=== PATIENT | female | born 1945 | race Caucasian/White ===

== ENCOUNTER 2021-12-26 20:25 | Emergency (ER) | payer MEDICARE, BC, SELFPAY ==
[2021-12-26 20:47] VITALS: BP 140/104; PULSE 85; RESP 18; TEMP 36.6; O2SAT 95; BMI 22.9
--- NOTE | 2021-12-26 21:13 | CRLHL7_ITS ---
For Patients: As a result of the Century Cures Act, medical imaging exams and procedure reports are released immediately into your electronic medical record. You may view this report before your referring provider. If you have questions, please contact your health care provider. INDICATION: Constipation. TECHNIQUE: Three views. FINDINGS: There is no evidence of subdiaphragmatic free air on upright view. Mild gaseous distention of small bowel in the mid abdomen. Early or developing obstruction is a possibility. Numerous surgical clips are present in the right abdomen. Calcifications in the lower pelvis have the appearance of phleboliths. Remote appearing deformity right ischium, possibly remote trauma. IMPRESSION: Mild gaseous distention of stomach and small bowel, early or developing obstruction not excluded. No free air. Dictated by Sabino Garland MD @ 12/26/2021 9:34:45 PM (Electronically Signed)
--- NOTE | 2021-12-26 21:38 | ED.NURSE ---
Report given to DANNI Ga.
--- NOTE | 2021-12-26 22:33 | ED.NURSE ---
MD ordered Fleets enema then instructed RN to hold administration. Patient began to feel better and was moving stool through colon so no enema was given.
--- NOTE | 2021-12-27 14:50 | ED.ABDPAIN ---
HPI - Abdominal Pain General Chief Complaint: Abdominal Pain Stated Complaint: Stoma Blockage Time Seen by Provider: 12/26/21 21:09 History of Present Illness HPI narrative: 76-year-old woman presenting with spouse with concern of abdominal pain and potential blockage of her abdominal stoma. She did have nuts today and notes that this has happened in the past when she ate nuts. Has no longer been producing stool into her bag. Started around 8 hours prior to presentation here. No fever. She notes that 1 of the times when she had tried problems here the intra-abdominal mesh had dislodged causing a problem. She has been nauseated. Is able to maintain hydration. She says notes that the stone was much more protuberant than usual. Related Data Home Medications Medication Instructions Recorded Confirmed No Known Home Medications 12/26/21 12/26/21 Allergies Allergy/AdvReac Type Severity Reaction Status Date / Time No Known Drug Allergies Allergy Verified 11/15/21 16:43 Review of Systems Status of ROS Reports: 6 or more systems reviewed and unremarkable except as noted in History and below PFSH PFSH Social History Smoking Status: Former smoker How often do you have a drink containing alcohol: 4 or more times a week AUDIT-C Alcohol total score: 4 Non-prescribed substance use: denies use Exam Narrative: Exam Narrative: Is pleasant. Clearly uncomfortable. Hands at her abdomen. Skin is warm and dry. Moving all extremities without difficulty and is well perfused. Cranial nerves 2-12 intact. Cardiovascular with regular rate and rhythm no murmur rub or gallop identified. Lungs are clear. Abdomen is protuberant soft. Do not actually appreciate much tympany. Stoma at the right mid abdomen with some greenish staining in the bag. I do apply pressure to the abdomen expelling a very small amount of green stool. This is uncomfortable but tolerable. Bowel sounds are present but faint. Const: Vital Signs, click to edit/add: Vital Signs - 24 hr 12/26/21 20:47 Temperature 97.9 F Pulse Rate [Pulse Oximeter] 85 Respiratory Rate 18 Blood Pressure [Le ft Upper Arm] 140/104 H Pulse Oximetry 95 Oxygen Delivery Me thod Room Air Documenting provider has reviewed patient's vital signs: yes Course Vital Signs Vital signs: Initial Vital Signs Temperature 97.9 F 12/26/21 20:47 Temperature Source Temporal Artery Scan 12/26/21 20:47 Pulse Rate 85 12/26/21 20:47 Pulse Rhythm 12/26/21 20:47 Respiratory Rate 18 12/26/21 20:47 Blood Pressure 140/104 H 12/26/21 20:47 Blood Pressure Mean 116 12/26/21 20:47 Blood Pressure Position Supine 12/26/21 20:47 Pulse Oximetry 95 12/26/21 20:47 Oxygen Delivery Method 12/26/21 20:47 Vital Signs Temperature 97.9 F 12/26/21 20:47 Pulse Rate 85 12/26/21 20:47 Respiratory Rate 18 12/26/21 20:47 Blood Pressure 140/104 H 12/26/21 20:47 Pulse Oximetry 95 12/26/21 20:47 Oxygen Delivery Method 12/26/21 20:47 Temperature 97.9 F 12/26/21 20:47 Pulse Rate 85 12/26/21 20:47 Respiratory Rate 18 12/26/21 20:47 Blood Pressure 140/104 H 12/26/21 20:47 Pulse Oximetry 95 12/26/21 20:47 Oxygen Delivery Method 12/26/21 20:47 MDM - Abdominal Pain MDM Narrative Medical decision making narrative: Given what she is describing certainly do have concerns regarding bowel obstruction. She does not feel she wants anything for pain at this time but does accept of Zofran. Abdominal x-ray is ordered which does show some air-fluid levels and a little distention in the small bowel I think, by my read. Radiology over-read as below--- IMPRESSION: Mild gaseous distention of stomach and small bowel, early or developing obstruction not excluded. No free air. Return anticipating further workup but reports that is feeling much better. They apparently did manage to fill the bag with stool and have a ready changed it. She does feel good deal improved. Says she is having lots of bowel sounds again. Discharge Plan Discharge Clinical Impression: Partial bowel obstruction, Abdominal pain Patient Disposition: Home w/ Parent or Adult Condition: Improved Additional Instructions: Just focus on hydration for now. Over the next 24-30 hours clear liquids, diluted juices, soup broths. Return for marked increase in persistent pain, intractable vomiting, associated fever. Zofran from [facility]. Prescriptions: No Action No Known Home Medications Follow Up/Referrals: Georgette Amaya MD [Primary Care Provider] - Stand Alone Forms: [employer] Info Instructions
== END 2021-12-26 22:37 | disposition home or self-care (01) ==
LOC: ED 22:00
PROVIDERS: Emergency Provider Family Medicine; PCP Internal Medicine
DX: K56.690 Other partial intestinal obstruction (principal)
CPT/HCPCS: 74019; 99283

== ENCOUNTER 2022-01-08 14:45 | Outpatient (CLI) | payer MEDICARE, BC, SELFPAY ==
--- NOTE | 2022-01-08 15:00 | CRLHL7_ITS ---
For Patients: As a result of the Cures Act, medical imaging exams and procedure reports are released immediately into your electronic medical record. You may view this report before your referring provider. If you have questions, please contact your health care provider. BILATERAL SCREENING MAMMOGRAM WITH COMPUTER-AIDED DETECTION TECHNIQUE: CC and MLO views were obtained. These mammographic images have been obtained using full-field digital technique. These mammographic images were interpreted with the benefit of computer-aided detection. COMPARISON FILM: 12/14/20, 12/09/19, 11/23/18. FINDINGS: There are scattered areas of fibroglandular density. LEFT breast biopsy clip seen previously. IMPRESSION: There is no radiographic evidence for malignancy. ASSESSMENT: BI-RADS Category 1: Negative RECOMMENDATION: Routine screening mammogram in 1 year. A lay language report of this examination will be provided to the patient. Mario Gray M.D. Diagnostic/Nuclear Medicine Radiologist [email or web address] NAGA:[email or web address] Transcribed: 10:49 a.m. PT/Dictated by: Mario Gray MD @ 01/09/2022 8:36:00 AM (Electronically Signed)
== END 2022-01-08 14:46 | disposition home or self-care (01) ==
LOC: MAMMO 14:46
PROVIDERS: PCP Internal Medicine; Visit Provider Internal Medicine
DX: Z12.31 Encounter for screening mammogram for malignant neoplasm of breast (principal)
CPT/HCPCS: 77063; 77067

== ENCOUNTER 2022-11-26 16:58 | Outpatient (CLI) | payer MEDICARE, BC, SELFPAY | END 2022-11-26 16:59 | disposition home or self-care (01) | PROVIDERS: PCP Internal Medicine; Visit Provider Internal Medicine | DX: Z00.00 Encounter for general adult medical examination without abnormal findings (principal); M85.80 Other specified disorders of bone density and structure, unspecified site | CPT/HCPCS: 82306 ==

== ENCOUNTER 2023-06-23 08:01 | Outpatient (CLI) | payer MEDICARE, BC, SELFPAY ==
--- NOTE | 2023-06-23 08:15 | MM_ITS ---
Patient: KARIME GONZÁLES Facility:?[facility] Patient ID:?[id number] Site Patient ID:?[id number] Site :?[id number] Study:?XRay-Breast Bilateral 3D W/CAD-06/23/2023 9:24:21 AM Ordering Physician:?Georgette Amaya Final Report: BILATERAL DIGITAL SCREENING MAMMOGRAM WITH TOMOSYNTHESIS AND COMPUTER-AIDED DETECTION CLINICAL HISTORY: Routine screening exam. COMPARISON: 01/08/2022, 12/14/2020, 12/09/2019. TECHNIQUE: Digital mammogram in CC and MLO projections including computer-aided detection (CAD). Tomosynthesis utilized. BREAST COMPOSITION: There are areas of scattered fibroglandular density. FINDINGS: RIGHT Breast: No suspicious findings. LEFT Breast: Nodular density within the lateral breast tissue 6 cm from the nipple, new from prior studies. IMPRESSION: LEFT breast asymmetry/mass. RECOMMENDATIONS: Additional mammographic views of the LEFT breast including 3D spot compression CC/MLO. LEFT breast ultrasound may also be required. BI-RADS Category 0: Incomplete: Need Additional Imaging Evaluation and/or Prior Mammograms for Comparison [facility] will contact the patient for follow-up. A lay language report of this examination will be provided to the patient. Dictated by Sanjay Barkley MD @ 06/24/2023 12:00:48 PM bhavya/Dictated by: Sanjay Barkley MD @ 06/24/2023 12:01:00 PM Signed by:?Sanjay Barkley MD @06/24/2023 1:27:38 PM (Electronic Signature)
== END 2023-06-23 08:02 | disposition home or self-care (01) ==
LOC: MAMMO 08:02
PROVIDERS: PCP Internal Medicine; Visit Provider Internal Medicine
DX: Z12.31 Encounter for screening mammogram for malignant neoplasm of breast (principal); N63.20 Unspecified lump in the left breast, unspecified quadrant
CPT/HCPCS: 77063; 77067

== ENCOUNTER 2023-07-17 09:20 | Outpatient (CLI) | payer MEDICARE, BC, SELFPAY ==
--- NOTE | 2023-07-17 09:45 | CRLHL7_ITS ---
For Patients: As a result of the Cures Act, medical imaging exams and procedure reports are released immediately into your electronic medical record. You may view this report before your referring provider. If you have questions, please contact your health care provider. DIGITAL DIAGNOSTIC LEFT MAMMOGRAM USING TOMOSYNTHESIS AND COMPUTER-AIDED DETECTION LEFT BREAST ULTRASOUND CLINICAL HISTORY: LEFT breast mass/asymmetry. COMPARISON: 06/23/2023, 01/08/2022. TECHNIQUE: Digital LEFT mammogram in two projections with computer-aided detection. Tomosynthesis was used in this interpretation. Real-time ultrasound imaging of LEFT breast with imaging documentation. BREAST COMPOSITION: There are areas of scattered fibroglandular density. FINDINGS: 3D spot compression CC/MLO LEFT breast mammogram images submitted. Persistent nodular density within the lower outer quadrant LEFT breast. No architectural distortion. Biopsy clip again noted within the LEFT breast. No suspicious calcifications. Targeted LEFT breast ultrasound performed. At 3 o`clock 6 cm from the nipple there is a circumscribed anechoic simple cyst measuring 12 x 9 x 14 millimeters. IMPRESSION: Benign simple cyst measuring 12 x 9 x 14 millimeters 3 o`clock 6 cm from the nipple LEFT breast. No evidence of malignancy. RECOMMENDATIONS: Annual bilateral screening mammography. Results and recommendations discussed with the patient. BI-RADS Category 2: Benign A lay language report of this examination will be provided to the patient. Dictated by Sanjay Barkley MD @ 07/17/2023 11:25:33 AM /Dictated by: Sanjay Barkley MD @ 07/17/2023 11:25:00 AM (Electronically Signed)
--- NOTE | 2023-07-17 10:15 | CRLHL7_ITS ---
For Patients: As a result of the Cures Act, medical imaging exams and procedure reports are released immediately into your electronic medical record. You may view this report before your referring provider. If you have questions, please contact your health care provider. PLEASE SEE DIGITAL DIAGNOSTIC LEFT MAMMOGRAM PERFORMED SAME DAY CRL:bhavya latif/Dictated by: Sanjay Barkley MD @ 07/17/2023 11:25:00 AM (Electronically Signed)
== END 2023-07-17 09:21 | disposition home or self-care (01) ==
LOC: MAMMO 09:21
PROVIDERS: PCP Internal Medicine; Visit Provider Internal Medicine
DX: N63.20 Unspecified lump in the left breast, unspecified quadrant (principal); N60.02 Solitary cyst of left breast; R92.8 Other abnormal and inconclusive findings on diagnostic imaging of breast
CPT/HCPCS: 76642; 77065; G0279

== ENCOUNTER 2024-01-01 10:58 | Day surgery (SDC) | payer MEDICARE, BC, SELFPAY ==
[2024-01-01] VITALS (10 sets, daily range): BP systolic 113–157; BP diastolic 66–96; PULSE 76–88; RESP 12–16; TEMP 36.4; O2SAT 94–96; BMI 22.8
[2024-01-01] MEDS: LIDOCAINE 1%-EPI 1:100,000 20 ML INFILTRATI (13:25)
[2024-01-01] MEDS: BUPIVACAINE 0.5 %/EPI 1:200K 30 ML INJECTION (13:25)
--- NOTE | 2024-01-01 14:08 | PM.ORPRC ---
Procedure Note Date of procedure: 01/01/24 Procedure: Preop diagnosis: Left upper extremity carpal tunnel syndrome Postop diagnosis: Left upper extremity carpal tunnel syndrome Procedure: Left upper extremity carpal tunnel release Anesthesia: Local Surgeon: Hubert Manzo MD assistant shift supervisor: HARJEET Chance EBL: 2 mL Complications: None Specimens: None Drains: None Indications: The patient has a history of left upper extremity carpal tunnel syndrome symptoms. Despite appropriate nonoperative management consisting of nighttime bracing and occupational therapy they continue to have symptoms. Operative intervention was recommended. The risks, benefits alternatives and expected outcomes were discussed in detail. These included but were not limited to: Infection, bleeding, injury to blood vessel or nerve, venous thromboembolism. All questions were answered to their satisfaction. The patient was placed supine on the operating room table. Local anesthesia was established with 0.5% Marcaine with epinephrine and 2% lidocaine with epinephrine. The hand was prepped and draped in usual sterile fashion. A longitudinal incision was made centered over the radial border of the ring finger at the base of the palm. Subcutaneous dissection was sharply taken through the palmar fascia and the palmaris brevis to the transverse carpal ligament. The ligament was divided in line with the incision. Proximal and distal dissection was carried with tenotomy and Metzenbaum scissors for a wide decompression of the carpal tunnel. The wound was closed with a 3-0 nylon. A bulky dry dressing was applied, sponge and needle counts were correct x 2. The patient tolerated the procedure well, there were no apparent complications. They were sent to same day surgery in satisfactory condition. Plan: Use of the hand as tolerates. Discontinue the intraoperative dressing on postoperative day 3 and may get the wound wet as tolerates. Follow up in the office in 2 weeks for a wound check and suture removal.
== END 2024-01-01 14:19 | disposition home or self-care (01) ==
PROVIDERS: PCP Internal Medicine; Visit Provider Orthopaedic Surgery
PROC: (CPT 64721; principal; 2024-01-01 12:15)
DX: G56.02 Carpal tunnel syndrome, left upper limb (principal)
CPT/HCPCS: 64721; J3490

== ENCOUNTER 2024-01-21 14:47 | Outpatient (CLI) | payer MEDICARE, BC, SELFPAY ==
--- NOTE | 2024-01-21 15:00 | CRLHL7_ITS ---
For Patients: As a result of the Century Cures Act, medical imaging exams and procedure reports are released immediately into your electronic medical record. You may view this report before your referring provider. If you have questions, please contact your health care provider. DXA BONE MINERAL DENSITY STUDY Reason for exam: Other specified disorders of bone density. Current height (in): 69. Weight (lb): 155. Menopause age: 45. Ethnicity: White. 1. Have you had a previous hip or vertebral fracture? No. 2. Have you had any fractures during your adult life which did not result from significant trauma (e.g., auto accident)? Yes. 3. Did either of your parents have a hip fracture? No. 4. Do you smoke? No. 5. Have you ever taken Glucocorticoids? No. 6. Do you have rheumatoid arthritis? No. 7. Do you have secondary osteoporosis? No. 8. Do you drink 3 or more alcoholic drinks per day? No. 9. Are you being treated for osteoporosis? No. 10. Have you ever taken any of the following medications: Actonel, Evista, Fosamax, Miacalcin, Reclast, Boniva, Forteo, HRT (i.e., estrogen/hormone therapy), Protelos, Prolia, Vitamin D, Calcium, other ??? please specify. ANSWER: Yes, vitamin D and calcium. 11. Do you have any of the following medical conditions: Anorexia or bulimia, asthma or emphysema, end stage renal disease, hyperparathyroidism, any seizure disorders, cancer, inflammatory bowel diseases, hysterectomy, other ??? please specify. ANSWER: Yes, inflammatory bowel diseases, hysterectomy, ulcerative colitis. 12. What was your maximum height (inches)? 70. 13. Do you perform weight bearing exercise regularly? Yes. 14. Do you regularly consume dairy products? Yes. 15. Do you drink caffeinated beverages? No. 16. At what age did your period start? 16. 17. Are you premenopausal? No. 18. How many full-term pregnancies have you had? 3. 19. Have you ever missed your period for more than 6 months in a row (not including or menopause)? No. TECHNIQUE: Bone mineral density study was performed using the [employer]. FINDINGS: The results of the study expressed as bone mineral density (BMD) are as follows: Lumbar spine L1 to L3: BMD: 0.953 g/cm2. T-score: -0.6. Z-score: 1.8 Neck Left: BMD: 0.702 g/cm2. T-score: -1.3. Z-score: 0.8 Right: BMD: 0.594 g/cm2. T-score: -2.3. Z-score: -0.2 Total Left: BMD: 0.797 g/cm2. T-score: -1.2. Z-score: 0.7 Right: BMD: 0.779 g/cm2. T-score: -1.3. Z-score: 0.5 IMPRESSION: Osteopenia. *Comparison exams done prior to 07/2019 were performed on different unit, ADP. COMPARISON: Compared with scan of 12/14/2020, the bone mineral density has no change at 0.0 percent at the spine and increased by 1.8 percent at the hip. Compared with scan of 09/30/2016, the bone mineral density has increased by 2.9 percent at the spine and increased by 3.7 percent at the hip. FRAX 10-year Fracture Risk Major Osteoporotic Fracture: 21% Hip Fracture: 6.1% Reported Risk Factors: [place] () Neck BMD=0.594, BMI=22.9, previous fracture. JAMEE GUNN M.D. Transcribed: 10:50 a.m. [email or web address] jj/Dictated by: Jamee Gunn MD @ 01/22/2024 8:30:00 AM (Electronically Signed)
== END 2024-01-21 14:48 | disposition home or self-care (01) ==
LOC: RAD 14:47
PROVIDERS: PCP Internal Medicine; Visit Provider Internal Medicine
DX: M85.88 Other specified disorders of bone density and structure, other site (principal); M85.89 Other specified disorders of bone density and structure, multiple sites
CPT/HCPCS: 77080

== ENCOUNTER 2024-06-17 06:12 | Day surgery (SDC) | payer MEDICARE, BC, SELFPAY ==
[2024-06-17] VITALS (12 sets, daily range): BP systolic 113–141; BP diastolic 69–95; PULSE 75–88; RESP 16–20; TEMP 36.3–36.5; O2SAT 94–98; BMI 22.0
[2024-06-17] MEDS: ETHYL CHLORIDE 1 APPLICATION 1 APPLIC TOPICAL (06:55)
[2024-06-17] MEDS: LIDOCAINE 1%-EPI 1:100,000 20 ML INFILTRATI (06:55)
[2024-06-17] MEDS: BUPIVACAINE 0.5 %/EPI 1:200K INJECTION (06:55)
--- NOTE | 2024-06-17 07:42 | PM.ORPRC ---
Procedure Note Date of procedure: 06/17/24 Procedure: Preop diagnosis: Right upper extremity carpal tunnel syndrome Postop diagnosis: Right upper extremity carpal tunnel syndrome Procedure: Right upper extremity carpal tunnel release Anesthesia: Local Surgeon: Hubert Manzo MD housing assistant property manager: HARJEET Chance, Desi Kenny, MS4 EBL: 2 mL Complications: None Specimens: None Drains: None Indications: The patient has a history of right upper extremity carpal tunnel syndrome symptoms. Despite appropriate nonoperative management consisting of nighttime bracing and occupational therapy they continue to have symptoms. Operative intervention was recommended. The risks, benefits alternatives and expected outcomes were discussed in detail. These included but were not limited to: Infection, bleeding, injury to blood vessel or nerve, venous thromboembolism. All questions were answered to their satisfaction. The patient was placed supine on the operating room table. Local anesthesia was established with 0.5% Marcaine with epinephrine and 2% lidocaine with epinephrine. The hand was prepped and draped in usual sterile fashion. A longitudinal incision was made centered over the radial border of the ring finger at the base of the palm. Subcutaneous dissection was sharply taken through the palmar fascia and the palmaris brevis to the transverse carpal ligament. The ligament was divided in line with the incision. Proximal and distal dissection was carried with tenotomy and Metzenbaum scissors for a wide decompression of the carpal tunnel. The wound was closed with a 3-0 nylon. A bulky dry dressing was applied, sponge and needle counts were correct x 2. The patient tolerated the procedure well, there were no apparent complications. They were sent to same day surgery in satisfactory condition. Plan: Use of the hand as tolerates. Discontinue the intraoperative dressing on postoperative day 3 and may get the wound wet as tolerates. Follow up in the office in 2 weeks for a wound check and suture removal.
== END 2024-06-17 08:16 | disposition home or self-care (01) ==
LOC: OR 06:13
PROVIDERS: PCP Internal Medicine; Visit Provider Orthopaedic Surgery
PROC: (CPT 64721; principal; 2024-06-17 07:15)
DX: G56.01 Carpal tunnel syndrome, right upper limb (principal)
CPT/HCPCS: 64721; J3490

== ENCOUNTER 2024-07-07 11:16 | Outpatient (CLI) | payer MEDICARE, BC, SELFPAY ==
--- NOTE | 2024-07-07 11:30 | CRLHL7_ITS ---
For Patients: As a result of the Century Cures Act, medical imaging exams and procedure reports are released immediately into your electronic medical record. You may view this report before your referring provider. If you have questions, please contact your health care provider. BILATERAL DIGITAL SCREENING MAMMOGRAM WITH COMPUTER-AIDED DETECTION AND TOMOSYNTHESIS CLINICAL HISTORY: : Routine screening exam. COMPARISON: 07/17/2023, 06/23/2023, 01/08/2022 TECHNIQUE: Digital mammogram in CC and MLO projections including computer-aided detection (CAD). Tomosynthesis was used in this interpretation. BREAST COMPOSITION: There are scattered areas of fibroglandular density. FINDINGS: RIGHT Breast: No suspicious findings LEFT Breast: Increased size of previously evaluated cyst within the lateral left breast now measuring 2.9 cm, previously measuring 1.4 cm. IMPRESSION: LEFT breast asymmetry/mass. RECOMMENDATIONS: Left breast ultrasound recommended. The [facility] will contact the patient. A lay language report of this examination will be provided to the patient. BI-RADS Category 0: Incomplete: Need Additional Imaging Evaluation Dictated by Sanjay Barkley MD @ 07/07/2024 11:54:21 AM Dictated by: Sanjay Barkley MD @ 07/07/2024 11:54:26 (Electronically Signed)
== END 2024-07-07 11:17 | disposition home or self-care (01) ==
LOC: MAMMO 11:17
PROVIDERS: PCP Internal Medicine; Visit Provider Internal Medicine
DX: Z12.31 Encounter for screening mammogram for malignant neoplasm of breast (principal); N63.20 Unspecified lump in the left breast, unspecified quadrant
CPT/HCPCS: 77063; 77067

== ENCOUNTER 2024-07-26 07:56 | Outpatient (CLI) | payer MEDICARE, BC, SELFPAY ==
--- NOTE | 2024-07-26 08:15 | CRLHL7_ITS ---
For Patients: As a result of the Century Cures Act, medical imaging exams and procedure reports are released immediately into your electronic medical record. You may view this report before your referring provider. If you have questions, please contact your health care provider. ULTRASOUND-GUIDED CYST ASPIRATION LEFT BREAST CLINICAL HISTORY: Large left breast cyst COMPARISON STUDIES: 07/07/2024 TECHNIQUE: Real-time ultrasound with image documentation was used for targeting the breast lesion. Ultrasound-guided aspiration performed with an 18 gauge needle. CONSENT and TIME OUT: The procedure, risks, and alternatives were explained to the patient and a consent was signed. Jerome Protocol was followed including pre-procedure verification that relevant information/documentation was available, reviewed and properly matched to the patient; consent accurate and complete; and equipment and supplies available. Time Out was conducted just prior to starting procedure to verify the four required elements: patient identity, correct side/site marked (if applicable), procedure, relevant images/results properly labeled and displayed (if applicable). PROCEDURE: The patient was positioned supine on the ultrasound table. The breast was prepped with ChloraPrep. 3 cc of 1% lidocaine was injected for local anesthesia. 13 cc of serosanguineous fluid aspirated and discarded. LATERALITY: Left breast LESION: Benign cyst measures 3.4 x 2.4 x 2.7 cm at 3 o`clock 6 cm from the nipple. IMPRESSION: Ultrasound-guided left breast cyst aspiration. No residual cyst is present. ACR not applicable Dictated by Sanjay Barkley MD @ 07/26/2024 10:31:43 AM (Electronically Signed)
--- NOTE | 2024-07-26 08:15 | CRLHL7_ITS ---
For Patients: As a result of the Century Cures Act, medical imaging exams and procedure reports are released immediately into your electronic medical record. You may view this report before your referring provider. If you have questions, please contact your health care provider. CLINICAL HISTORY: Left breast mass. COMPARISON: 07/07/2024 TECHNIQUE: Real-time ultrasound imaging of left breast with imaging documentation. FINDINGS: Targeted ultrasound left breast 3 o`clock 6 cm from the nipple performed in the area of concern. In this location, there is a simple circumscribed anechoic cyst which measures 3.4 x 2.4 x 2.7 cm. No internal vascularity. Mild layering debris noted. Increased through transmission noted. IMPRESSION: Benign cyst left breast 3 o`clock 6 cm from the nipple measuring 3.4 cm. RECOMMENDATIONS: Ultrasound-guided aspiration will be performed subsequently. A lay language report of this examination will be provided to the patient. BI-RADS Category 2: Benign Dictated by Sanjay Barkley MD @ 07/26/2024 9:18:49 AM JANIE/Dictated by: Sanjay Barkley MD @ 07/26/2024 9:18:00 AM (Electronically Signed)
== END 2024-07-26 07:57 | disposition home or self-care (01) ==
LOC: US 07:56
PROVIDERS: PCP Internal Medicine; Visit Provider Internal Medicine
DX: N63.20 Unspecified lump in the left breast, unspecified quadrant (principal); N60.02 Solitary cyst of left breast; R92.8 Other abnormal and inconclusive findings on diagnostic imaging of breast
CPT/HCPCS: 19000; 76642; 76942

== ENCOUNTER 2024-10-12 07:33 | Day surgery (SDC) | payer MEDICARE, BC, SELFPAY ==
[2024-10-12] VITALS (7 sets, daily range): BP systolic 95–140; BP diastolic 66–107; PULSE 59–79; RESP 16; TEMP 35.9–36.9; O2SAT 94–98; BMI 27.2
[2024-10-12] MEDS: CELECOXIB 200 MG CAPSULE PO (07:36)
[2024-10-12] MEDS: ACETAMINOPHEN 500 MG TABLET 1000 MG PO (07:36)
[2024-10-12] MEDS: LACTATED RINGERS 1000 ML 1,000 ML 100 ML IV (07:40)
[2024-10-12] MEDS: SODIUM CHLORIDE 0.9 % (FLUSH) 10 ML SYRINGE IVF (07:57)
--- NOTE | 2024-10-12 08:28 | SUR.PREOP ---
TIME?OUT:?827 PT/Florence Loza RN/Dr. Sal MDA?VERIFICATION?OF?SURGICAL?SITE right thumb,?PROCEDURE,?AND?CONSENT OBTAINED?PRIOR?TO?INVASIVE?PROCEDURE.
[2024-10-12] MEDS: MIDAZOLAM HCL 1 MG/ML inj IVP (08:29)
--- NOTE | 2024-10-12 08:49 | P.NB_ITS ---
Nerve Block Nerve Block Time Seen by Provider: 08:30 Date Seen: 10/12/24 Type of block requested by surgeon for post-operative analgesia: axillary Side: right Time out performed: Yes Verification of patient name: Yes Verification of date of : Yes Site marking: site marked Name of person performing procedure: Sal Continuous monitoring Was continuous monitoring of O2 sat, B/P, traffic monitor specialist, recorded every 15 minutes?: Yes Procedure Checklist: sterile prep, needles and gloves Ultrasound guided. Images saved: Yes Medications given in 5ml increments after negative aspiration: Ropivicaine %: 0.5 mL: 30 Needle gauge: 22 Patient tolerated procedure well: Yes Additional comments: Needle noted adjacent to nerve Block Charges Block Charge (with Pro Fee): Brachial Plexus Use of Ultrasound Machine for Block: Yes- US Guidance/pain block
--- NOTE | 2024-10-12 08:52 | P.ANES_ITS ---
Anesthesia Charges Start Date/Time Anesthesia Start Date: 10/12/24 Anesthesia Start Time: 08:45 Stop Date/Time Anesthesia Stop Date: 10/12/24 Anesthesia Stop Time: 11:11 Summary Extremes of Age - Over 70 or under 1: MDA Coding CPT Codes CPT Codes: ANESTH LOWER ARM SURGERY - 10318 ([id number]) QK - MEDIA DEVELOPER 2-4 CNCRNT ANES PROC, QX - BIOLOGY INTERNSHIP SVC W/ MD MED DIRECTION, P2 - PATIENT W/MILD SYST DISEASE Additional Codes: Summary - Extremes of Age - Over 70 or under 1: MDA ([id number])
--- NOTE | 2024-10-12 11:00 | P.ORPRC_ITS ---
Procedure Note Date of procedure: 10/12/24 Procedure: PREOPERATIVE DIAGNOSIS: Right thumb CMC joint osteoarthritis, STT joint osteoarthritis POSTOPERATIVE DIAGNOSIS: Right thumb CMC joint osteoarthritis, STT joint osteoarthritis NAME OF OPERATION: Right thumb CMC arthroplasty (LRTI), partial resection of the trapezoid, EPB transfer SURGEON: Hubert Manzo MD RIVETER PORTABLE MACHINE: Sallie Larose PA-C ANESTHESIA: Axillary block plus monitored anesthesia care ESTIMATED BLOOD LOSS: 0 mL COMPLICATIONS: None SPECIMENS: None DRAINS: None PREOPERATIVE ANTIBIOTICS: Ancef 2 grams INDICATIONS: The patient is a 79-year-old with a history of right thumb CMC joint, STT joint osteoarthritis. Despite appropriate nonoperative management, including activity modification, antiinflammatories, [id number] pain medication, bracing, occupational therapy, and injections they continue to have pain and disability. Operative intervention was offered. The risks, benefits and expected outcomes were discussed in detail. These included but were not limited to: Infection, bleeding, injury to blood vessel or nerve, venous thromboembolism. All questions were answered to their satisfaction. Use of an web marketing assistant was necessary for patient positioning, soft tissue retraction, wound closure and dressing and splint application. Provider Operated C-arm: C-arm fluoroscopy operated by Hubert Manzo MD for resection of the base of the trapezoid. Fourteen C-arm spot images were obtained. Fluoroscopy time was 10 seconds. PROCEDURE: An axillary block was placed by anesthesia. The patient was placed supine on the operating room table. IV sedation was administered. The right upper extremity was prepped and draped in the usual sterile fashion. The limb was exsanguinated with the Vic bandage. The pneumatic tourniquet was inflated to 200 mmHg. A longitudinal incision was made just dorsal to the 1st dorsal compartment at the base of the thumb. Subcutaneous dissection was taken with tenotomy scissors. The base of the thumb metacarpal was exposed. The CMC joint capsule was incised longitudinally. Subperiosteal dissection of the trapezium was carried both dorsally and volarly. Likewise, the base of the thumb metacarpal was subperiosteally exposed. The trapezium was dissected free with the 15 blade and the [place] elevator. It was removed intact. In doing so, what was left of the trapezoid was removed as well. It was diminutive in size, from the STT joint arthritis. We inspected the stability of the index finger metacarpal. There was no propensity for shortening or instability of the base of the index metacarpal. Despite this, we elected to clean up trapezoid and use it as a biologic spacer. Therefore, it was placed in its anatomic location. Attention was then turned to the FCR graft harvest. A transverse incision was made at the musculotendinous junction of the FCR in the volar forearm. Subcutaneous dissection was taken with tenotomy scissors to the tendon. The tendon was freed up from the muscle fibers and was divided transversely. We then pulled the tendon graft into the distal incision at the base of the thumb. We placed a 2-0 FiberWire suture in the deep capsule. A 2.8 mm socket was drilled on the radial side of the base of the index finger metacarpal. A loop of labral tape was placed in the socket and secured with a 3 mm x 8 mm BioComposite anchor. A guide pin was drilled through the dorsum of the base of the thumb metacarpal exiting at the volar peak of the base of thumb metacarpal. A 5 mm tunnel was drilled. The tendon passer was placed through the tunnel. We pulled the tendon graft and both limbs of the labral tape into the tunnel. We maximally tensioned the graft and then placed a 4.75 x 15 mm Arthrex BioComposite tenodesis screw just distal to the graft. The graft was then pulled proximally and was secured to the dorsal bone of the base of the metacarpal with 2-0 FiberWire suture x2. We then used our previously placed 2-0 FiberWire suture in the deep capsule and folded the graft back and forth over these sutures. The graft was placed in the depth of the wound and this FiberWire suture was tied over the top to secure it in position. Given the amount of hyperextension through the thumb MP joint we elected to transfer the extensor pollicis brevis tendon. It was therefore freed up and was divided just proximal to the MP joint. It was then secured to the periosteum of the thumb metacarpal, proximal to the MP joint with a 3-0 FiberWire, completing the transfer. The wound was irrigated with normal saline. The capsule was closed with a 3-0 Vicryl in an interrupted [id number] fashion. Wounds were closed with 3-0 Vicryl and a 4-0 Monocryl. Glue was used to seal the skin. A dry dressing and short-arm thumb spica splint were applied, the tourniquet was released. Sponge and needle counts were correct x 2. The patient tolerated the procedure well. There were no apparent complications. They were carefully transferred to the hospital bed and taken to the postanesthesia care unit in satisfactory condition. PLAN: The patient will be discharged to home. They will work on ice and elevation of the hand. They will follow up in the office next week for wound check and three views of the thumb, out of the splint prior to being seen.
--- NOTE | 2024-10-12 11:10 | P.ANES_ITS ---
Anesthesia Charges Start Date/Time Anesthesia Start Date: 10/12/24 Anesthesia Start Time: 08:45 Stop Date/Time Anesthesia Stop Date: 10/12/24 Anesthesia Stop Time: 11:11 Summary Extremes of Age - Over 70 or under 1: QC TECH Coding CPT Codes CPT Codes: ANESTH LOWER ARM SURGERY - 92112 ([id number]) P2 - PATIENT W/MILD SYST DISEASE, QK - HYDROTREATER OPERATOR 2-4 CNCRNT ANES PROC, QX - QC TECH SVC W/ MD MED DIRECTION Additional Codes: Summary - Extremes of Age - Over 70 or under 1: QC TECH ([id number])
--- NOTE | 2024-10-12 11:10 | W.ANESCHARGE ---
Anesthesia Charges Start Date/Time Anesthesia Start Date: 10/12/24 Anesthesia Start Time: 08:45 Stop Date/Time Anesthesia Stop Date: 10/12/24 Anesthesia Stop Time: 11:11 Summary Extremes of Age - Over 70 or under 1: COMPUTER MECHANIC Coding CPT Codes CPT Codes: ANESTH LOWER ARM SURGERY - 05665 ([id number]) P2 - PATIENT W/MILD SYST DISEASE, QK - CENTERLESS GRINDER 2-4 CNCRNT ANES PROC, QX - COMPUTER MECHANIC SVC W/ MD MED DIRECTION Additional Codes: Summary - Extremes of Age - Over 70 or under 1: COMPUTER MECHANIC ([id number])
== END 2024-10-12 12:25 | disposition home or self-care (01) ==
LOC: OR 07:35
PROVIDERS: PCP Internal Medicine; Visit Provider Orthopaedic Surgery
PROC: (CPT 25448; principal; 2024-10-12 08:45)
DX: M18.11 Unilateral primary osteoarthritis of first carpometacarpal joint, right hand (principal); M19.031 Primary osteoarthritis, right wrist; G89.18 Other acute postprocedural pain
CPT/HCPCS: 25448; 01830; 64415; 73140; 76000; 76942; 99100; A9270; C1713; J0690; J2250; J2371; J2405; J2704; J2795; J3010; J7120

== ENCOUNTER 2024-11-01 06:10 | Day surgery (SDC) | payer MEDICARE, BC, SELFPAY ==
[2024-11-01 06:26] VITALS: BMI 27.2
[2024-11-01] MEDS: LACTATED RINGERS 500 ML 500 ML 100 ML IV ×2 (06:30→07:58)
[2024-11-01 06:37] VITALS: BP 147/99; PULSE 81; RESP 16; TEMP 36.6; O2SAT 97
[2024-11-01] MEDS: SODIUM CHLORIDE 0.9 % (FLUSH) 10 ML SYRINGE IVF (06:39)
--- NOTE | 2024-11-01 07:20 | W.PM.H&PU ---
History & Physical Update History & Physical Update H&P Reviewed and patient assessed: No changes noted H&P Updates: Patient is now off of oxycodone for her recent hand surgery.
--- NOTE | 2024-11-01 07:21 | P.GSOP_ITS ---
Operative Note Date of procedure: 11/01/24 Pre-op diagnosis: Left breast cyst Post-op diagnosis: Same Type of Procedure: Excisional biopsy 3 cm left breast cyst Indications: The patient is a 79-year-old female who presented to clinic with a recurrent left breast cyst. This was 1st noticed on mammogram last year. Six-month follow-up showed it to have grown significantly and she underwent aspiration of what appeared to be a simple 3 cm cyst. It quickly recurred. She followed up in clinic and the cyst was noted to be fairly superficial with some skin discoloration over the top and this caused significant discomfort for her when it bumped up against her arm with any movement. After discussion of risks and benefits of excision, she agreed to proceed. Procedure Description: After discussing the risks and benefits of the procedure, the patient signed informed consent.? The operative site was marked and the patient was brought to the operating room and placed on the operating table in supine position.? Care was taken to pad the patient's pressure points.?? The patient was then given sedation by anesthesia.?? The operative site was then prepped and draped in the usual sterile fashion.? A time-out was then performed. On the left breast, in the outer lower quadrant, she had a firm mass with skin thinning and slight discoloration. An ellipse was marked in the skin to encompass the very thin skin overlying the most superficial part of the cyst in order to excise this. Local anesthetic was injected into the skin and subcutaneous tissue overlying the cyst. An ellipse was then created in the skin and dissection was taken down sharply into the subcutaneous tissue. Cautery was then used to excise the cyst from the surrounding fat. Inferiorly, the cyst was very close to the skin and I did enter the cyst. Clear fluid returned. The cyst was then completely excised again using cautery. Small bleeding vessels were cauterized. A marking stitch was placed at the medial aspect to orient the specimen as the cyst wall appeared thin except for the most superficial and m edial aspect where there was a small nodule. Hemostasis appeared excellent. The wound was then closed with 3-0 Vicryl dermal and 4-0 Monocryl running subcuticular suture. Sterile dressings were then applied. ? The patient was then woken and transported to the recovery area in stable condition. ? The patient tolerated the procedure well. Findings: 3 cm simple cyst of the left breast, outer lower quadrant, small nodular area noted superficially and medially. Anesthesia: MAC Surgeon: Elizabeth Espinoza MD Estimated blood loss (mL): 5 Specimen: Other Additional Specimen Information: Left breast cyst,stitch medial. Condition: stable Disposition: same day
[2024-11-01] MEDS: BUPIVACAINE 0.25% 30 ML INJECTION (07:47)
[2024-11-01 08:15] VITALS: BP 109/70; PULSE 81; RESP 16; TEMP 36.8; O2SAT 91
--- NOTE | 2024-11-01 08:22 | P.ANES_ITS ---
Anesthesia Charges Start Date/Time Anesthesia Start Date: 11/01/24 Anesthesia Start Time: 07:20 Stop Date/Time Anesthesia Stop Date: 11/01/24 Anesthesia Stop Time: 08:19 Summary Extremes of Age - Over 70 or under 1: PLANT ASSOCIATE Coding CPT Codes CPT Codes: ANESTH SKIN EXT/PER/ATRUNK - 83134 ([id number]) P2 - PATIENT W/MILD SYST DISEASE, QZ - PLANT ASSOCIATE SVC W/O INNERSOLE MAKER BY Additional Codes: Summary - Extremes of Age - Over 70 or under 1: PLANT ASSOCIATE ([id number])
--- NOTE | 2024-11-01 08:22 | W.ANESCHARGE ---
Anesthesia Charges Start Date/Time Anesthesia Start Date: 11/01/24 Anesthesia Start Time: 07:20 Stop Date/Time Anesthesia Stop Date: 11/01/24 Anesthesia Stop Time: 08:19 Summary Extremes of Age - Over 70 or under 1: REPAIRER HANDTOOLS Coding CPT Codes CPT Codes: ANESTH SKIN EXT/PER/ATRUNK - 87127 ([id number]) P2 - PATIENT W/MILD SYST DISEASE, QZ - REPAIRER HANDTOOLS SVC W/O STEEL BURNER BY Additional Codes: Summary - Extremes of Age - Over 70 or under 1: REPAIRER HANDTOOLS ([id number])
[2024-11-01 08:36] VITALS: BP 107/76; PULSE 70; RESP 16; O2SAT 97
[2024-11-01 08:45] VITALS: BP 127/82; PULSE 67; RESP 16; O2SAT 97
== END 2024-11-01 09:19 | disposition home or self-care (01) ==
PROVIDERS: PCP Internal Medicine; Visit Provider Surgery
PROC: (CPT 19120; principal; 2024-11-01 07:30)
DX: N60.02 Solitary cyst of left breast (principal)
CPT/HCPCS: 19120; 00400; 88307; 88360; 88361; 99100; J0665; J0690; J1100; J2371; J2405; J2704; J3010; J3490; J7120

== ENCOUNTER 2024-11-10 14:34 | Outpatient (CLI) | payer MEDICARE, BC, SELFPAY ==
--- NOTE | 2024-11-10 15:00 | CRLHL7_ITS ---
For Patients: As a result of the 21st Century Cures Act, medical imaging exams and procedure reports are released immediately into your electronic medical record. You may view this report before your referring provider. If you have questions, please contact your health care provider. Indication: Malignant neoplasm of breast Technique: CT Chest/Abd/Pelvis W ISOVUE 370 intravenous contrast Please note that all CT scans at this facility use dose modulation, iterative reconstruction, and/or weight-based dosing when appropriate to reduce radiation dose to as low as reasonably achievable. Comparison: CT abdomen and pelvis 08/04/2018 Findings: In the chest, there is a collection of fluid in the left breast tissue which is further discussed on the same day breast MRI. Biopsy clip in the left breast also noted. There is a large solid and cystic nodule within the right thyroid lobe which extends into the superior mediastinum measuring at least 4.2 cm. Incidental pericardial recess is present. No enlarged mediastinal, hilar or axillary lymph nodes. Stable subpleural nodule right lower lobe measuring 6.7 millimeters. Curvilinear scarring within the right upper lobe noted. Numerous small nodules within the right upper lobe are present measuring 3 millimeters or less. No infiltrate or edema. No effusion or pneumothorax. Small 2 millimeter nodule in the left upper lobe also present. No fracture or intrinsic osseous lesion. In the abdomen, 2.7 cm hemangioma within the posterior segment of the right hepatic lobe is unchanged. Additional smaller hemangioma adjacent to the falciform ligament within the left hepatic lobe is also unchanged. Tiny sub cm cysts are present elsewhere. No suspicious intrahepatic mass. The spleen is normal. No adrenal nodule. The left kidney is normal. Normal pancreas. Ectopic position of the right kidney without hydronephrosis or renal mass. Faint gallstones are present, as before. No biliary obstruction. Postoperative changes to the abdominal wall. Right lateral abdominal wall hernia is present with the defect measuring 4.2 cm. This is associated with a right-sided stoma. Multiple loops of nondistended bowel are present within the hernia which measures 12.6 cm. Atherosclerotic changes in the aorta. No aneurysm. No dissection. No retroperitoneal or mesenteric adenopathy. In the pelvis, no pelvic or inguinal adenopathy. Bladder normal. Uterus is absent. Status post colectomy. No bowel obstruction or free air. No free fluid or abscess. Chronic deformity of the right inferior pubic ramus. No acute fracture. No intrinsic osseous lesion. Degenerative disc disease L4-5 and L5-S1. No pars defect or spondylolisthesis. Incidental less than 1 centimeter in short axis dimension lymph node adjacent to the right-sided hernia. Impression: Persistent fluid collection within the left breast tissue which is further evaluated on the same day breast MRI. Reticular scarring in the right upper lobe with associated tiny right upper lobe pulmonary nodules. Tiny left upper lobe nodule also present. Large solid and cystic right thyroid lobe nodule. Ultrasound recommended. Chronic intrahepatic hemangiomas without suspicious intrahepatic mass. Chronic cholelithiasis. Chronic stomal hernia right abdominal wall. No bowel obstruction. Status post total colectomy. Please note that all CT scans at this facility use dose modulation, iterative reconstruction, and/or weight-based dosing when appropriate to reduce radiation dose to as low as reasonably achievable. Dictated by Sanjay Barkley MD @ 11/11/2024 10:17:55 AM (Electronically Signed)
[2024-11-10 15:07] LABS: Creatinine* 0.7 mg/dL (0.5-1.5); Estimated Glomerular Filt Rate 89 ml/min
--- NOTE | 2024-11-10 15:30 | CRLHL7_ITS ---
For Patients: As a result of the 21st Century Cures Act, medical imaging exams and procedure reports are released immediately into your electronic medical record. You may view this report before your referring provider. If you have questions, please contact your health care provider. BILATERAL BREAST MRI WITHOUT AND WITH GADOLINIUM CLINICAL HISTORY: Recently diagnosed breast cancer after excision of a cystic mass at 3 o`clock in the LEFT breast. The surgical specimen showed invasive carcinoma anterior and lateral margins and DCIS involving the inferior margin and less than 1 mm from the superior, posterior, lateral and anterior margins. Surgery was performed on 11/01/2024. INDICATION FOR BREAST MRI: Staging of newly diagnosed breast cancer and screening of contralateral breast. Regional lymph nodes will also be assessed. COMPARISON STUDIES: Mammogram 07/07/2024, 07/17/2023, 06/23/2023 and 01/08/2022. LEFT breast ultrasound 07/17/2023 and 07/26/2024. CONTRAST: 15 mL IV Dotarem. TECHNIQUE: The patient was positioned prone using a breast coil. Multiple imaging sequences were obtained using 1-1.5 mm thick slices with no gap. The image sequences include T2-weighted STIR in the axial plane, T1-weighted nonfat-saturated gradient echo in the axial plane, pre- and post-contrast T1-weighted FLASH 3D with fat suppression in the axial plane, and T1-weighted FLASH high resolution 3D with fat suppression in the sagittal plane. Image post-processing was performed on a [employer] workstation. Complex 3D rendering including maximum intensity projections (MIPS) and volumetric renderings were obtained to optimize visualization of the extent of pathology and relationship to the nipple, skin, and chest wall. This aids in determining feasibility of breast conservation surgery. Subtraction, multiplanar reconstruction, mean curve determination, and angiogenesis mapping were also performed. The study was technically adequate. FINDINGS: Amount of Fibroglandular Tissue: Scattered fibroglandular tissue. Breast Background Enhancement: Minimal. RIGHT Breast: There is no suspicious mass or non-mass enhancement. LEFT Breast: In the outer central breast centered 6 cm posterior to the nipple there is a postsurgical fluid collection measuring 2.6 x 4.7 x 2.1 cm with thin peripheral enhancement. The collection abuts the skin. There is mild overlying skin thickening which is most likely related to the recent surgery. At 9 o`clock, 2 cm posterior to the nipple and 2 cm anterior to the fluid collection there is focal clumped non-mass enhancement measuring 0.6 x 1.1 x 1 cm demonstrating fast initial and persistent delayed phase kinetics. Lymph Nodes: No abnormal morphology lymph nodes. IMPRESSIONS AND RECOMMENDATIONS: 1. Postsurgical fluid collection in the outer central LEFT breast at the site of the recent excision showing invasive ductal carcinoma. The fluid collection measures up to 4.7 cm, abuts the skin and has thin peripheral enhancement. No specific suspicious areas of enhancement surrounding the collection. Continued surgical/oncologic management is recommended. 2. There is focal clumped non-mass enhancement at 9 o`clock 2 cm from the nipple in the LEFT breast, 2 cm anterior to the postsurgical fluid collection. This could be related to the recent surgery. If breast conservation is planned, then recommend targeted ultrasound and possible ultrasound-guided biopsy. If there is no sonographic correlate, then recommend MRI-guided biopsy. 3. No MRI evidence of malignancy in the RIGHT breast. 4. No suspicious lymph nodes. BI-RADS Category 4: Suspicious Dictated by Lynda Daniel MD @ 11/11/2024 9:29:41 AM jj/Dictated by: Lynda Daniel MD @ 11/11/2024 9:29:00 AM (Electronically Signed)
== END 2024-11-10 14:35 | disposition home or self-care (01) ==
PROVIDERS: PCP Internal Medicine; Visit Provider Internal Medicine Hematology & Oncology
DX: C50.919 Malignant neoplasm of unspecified site of unspecified female breast (principal); N60.02 Solitary cyst of left breast; E04.1 Nontoxic single thyroid nodule; R91.8 Other nonspecific abnormal finding of lung field; K80.20 Calculus of gallbladder without cholecystitis without obstruction; D18.09 Hemangioma of other sites
CPT/HCPCS: 36415; 71260; 74177; 77049; 82565; C8908; C8937; A9575; Q9967

== ENCOUNTER 2024-11-12 08:34 | Outpatient (CLI) | payer MEDICARE, BC, SELFPAY ==
--- NOTE | 2024-11-12 09:30 | CRLHL7_ITS ---
For Patients: As a result of the Century Cures Act, medical imaging exams and procedure reports are released immediately into your electronic medical record. You may view this report before your referring provider. If you have questions, please contact your health care provider. INDICATION: Breast cancer. TECHNIQUE: Multiplanar MRI of the brain was performed with and without the administration of intravenous contrast. IV contrast: 15 mL Dotarem. COMPARISON: None. FINDINGS: No evidence of acute infarction. No evidence of acute intracranial hemorrhage. A focus of susceptibility in the right henderson radiata that may represent a chronic microhemorrhage or remote small embolic event. No abnormal parenchymal or leptomeningeal enhancement. Mild/moderate scattered T2/FLAIR hyperintensities in the subcortical and periventricular white matter. While nonspecific, these can be seen as sequela of chronic small vessel ischemia. The ventricles and sulci are prominent and proportionate reflecting mild diffuse brain volume loss. No significant paranasal sinus mucosal thickening/secretions. No evidence of acute orbital pathology. No significant mastoid effusion. No suspicious marrow signal abnormality. IMPRESSION: No evidence of intracranial metastases. Dictated by Donnie Farley MD @ 11/12/2024 3:34:51 PM (Electronically Signed)
== END 2024-11-12 08:35 | disposition home or self-care (01) ==
LOC: MRI 08:35
PROVIDERS: PCP Internal Medicine; Visit Provider Internal Medicine Hematology & Oncology
DX: C50.919 Malignant neoplasm of unspecified site of unspecified female breast (principal)
CPT/HCPCS: 70553; A9575

== ENCOUNTER 2024-11-16 07:07 | Outpatient (CLI) | payer MEDICARE, BC, SELFPAY ==
--- NOTE | 2024-11-16 07:30 | CRLHL7_ITS ---
For Patients: As a result of the Century Cures Act, medical imaging exams and procedure reports are released immediately into your electronic medical record. You may view this report before your referring provider. If you have questions, please contact your health care provider. NM Bone Scan: Technique: Radiopharmaceutical Tc-99m MDP 26.6 mCi IV Post-injection imaging delay: Approximately 3 hours. Whole body anterior and posterior planar images were obtained. Clinical information: 79-year-old woman. History of newly diagnosed triple negative breast cancer. Comparison: CT chest abdomen and pelvis 11/10/2024 Findings: Bone lesions: No scintigraphic evidence of osseous metastatic disease. Degenerative appearing changes in the sternoclavicular joints, spine, shoulders, right knee, and right ankle. Excreted radiotracer in the kidneys and bladder. Impression: No scintigraphic evidence of osteoblastic osseous metastatic disease. If there is continued clinical concern, correlate with FDG PET-CT. Dictated by Aung Quach MD @ 11/17/2024 11:21:57 PM (Electronically Signed)
== END 2024-11-16 07:08 | disposition home or self-care (01) ==
LOC: NM 07:07
PROVIDERS: PCP Internal Medicine; Visit Provider Internal Medicine Hematology & Oncology
DX: C50.919 Malignant neoplasm of unspecified site of unspecified female breast (principal)
CPT/HCPCS: 78306; A9503

== ENCOUNTER 2024-11-22 07:00 | Day surgery (SDC) | payer MEDICARE, BC, SELFPAY ==
[2024-11-22] MEDS: LACTATED RINGERS 1000 ML 1,000 ML 100 ML IV (07:05)
[2024-11-22 07:24] VITALS: BP 151/102; PULSE 80; RESP 16; TEMP 36.6; O2SAT 96; BMI 21.9
[2024-11-22] MEDS: SODIUM CHLORIDE 0.9 % (FLUSH) 10 ML SYRINGE IVF (07:27)
--- NOTE | 2024-11-22 08:15 | CRLHL7_ITS ---
For Patients: As a result of the Century Cures Act, medical imaging exams and procedure reports are released immediately into your electronic medical record. You may view this report before your referring provider. If you have questions, please contact your health care provider. Indication: s/p port Technique: AP view of the chest. Comparison: 08/02/2009. Findings: Right internal jugular chest port with catheter tip in the mid superior vena cava. Normal cardiomediastinal silhouette aside from calcified aortic knob. Redemonstration of moderate right upper lobe linear opacities. No pleural effusion or visualized pneumothorax. Impression: 1. Right internal jugular chest port with catheter tip in the mid superior vena cava. 2. Redemonstration of moderate right upper lobe linear opacities, which are compatible with scarring. Dictated by Marquis Hall MD @ 11/22/2024 9:59:17 AM (Electronically Signed)
--- NOTE | 2024-11-22 08:16 | W.PM.H&PU ---
History & Physical Update History & Physical Update H&P Reviewed and patient assessed: No changes noted
--- NOTE | 2024-11-22 08:16 | PM.GSPRC ---
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 Neoadjuvant chemotherapy is planned and port placement was recommended. Procedure Description: After discussing the risks and benefits of the procedure, the patient signed informed consent.? The operative site was marked and the patient was brought to the operating room and placed on the operating table in supine position.? Care was taken to pad the patient's pressure points.?? The patient was then given sedation by anesthesia.?? The operative site was then prepped and draped in the usual sterile fashion.? A time-out was then performed. The patient's right internal jugular vein was visualized using ultrasound. Local anesthetic was injected into the skin overlying the vein. A skin jose miguel was then created. Through this, the vein was accessed using ultrasound guidance. Of note, the vein was very collapsible despite increasing fluids and steep Trendelenburg position. I was unable to advance the wire on my 1st attempt. On my 2nd attempt, I was able to advance the wire. I confirmed its location in the vena cava using fluoroscopy. Next, local anesthetic was injected into the skin below the clavicle and along the proposed tract to the neck incision. A skin incision was then made with a 15 blade and a pocket created in the subcutaneous tissue with cautery. A tunneler was then used to thread the catheter from the chest wall pocket to the neck incision. Once this was done fluoroscopy was brought into the field. Over the wire the tract was dilated using fluoroscopy. The wire and the dilator were then removed leaving the sheath in the vein. Through this, the catheter was threaded. Using fluoroscopy, the catheter was positioned into the distal SVC. The catheter was noted to flush and aspirate easily. The catheter was then connected to the port. The port was placed in the pocket and secured in place with 2 0 Prolene sutures. It was noted to flush and aspirate easily. This was then locked with heparinized saline. The skin was closed with absorbable suture. Glue was then applied. Instrument sponge and needle counts were correct at the end of the case. The patient was woken and taken to the PACU in stable condition. ? The patient tolerated the procedure well. Findings: Right IJ power port placed in the low SVC. Surgeon: Elizabeth Espinoza MD Estimated blood loss (mL): 10 Condition: stable Disposition: same day
--- NOTE | 2024-11-22 08:30 | CRLHL7_ITS ---
For Patients: As a result of the Century Cures Act, medical imaging exams and procedure reports are released immediately into your electronic medical record. You may view this report before your referring provider. If you have questions, please contact your health care provider. INDICATION: Port-A-Cath placement TECHNIQUE: Chest 1 views. COMPARISON: CT chest November 10, 2024 FINDINGS/IMPRESSION: Intraoperative radiograph of the chest demonstrates a right-sided Xpiwvy-I-Izyz catheter placement with the tip at cavoatrial junction. Total fluoroscopic time is 19 seconds. Dictated by Yasmine Driver MD @ 11/23/2024 7:22:17 AM (Electronically Signed)
[2024-11-22] MEDS: LIDOCAINE 1% MDV 20 ML INJECTION (09:13)
[2024-11-22] MEDS: BUPIVACAINE 0.5% 30 ML INJECTION (09:13)
[2024-11-22] MEDS: 0.9% SODIUM CHL 50 ML VIAL INJECTION (09:16)
[2024-11-22] MEDS: HEPARIN 500 UNIT/5 ML SYRINGE IVF (09:18)
--- NOTE | 2024-11-22 09:25 | P.ANES_ITS ---
Anesthesia Charges Start Date/Time Anesthesia Start Date: 11/22/24 Anesthesia Start Time: 08:24 Stop Date/Time Anesthesia Stop Date: 11/22/24 Anesthesia Stop Time: 09:37 Summary Extremes of Age - Over 70 or under 1: MDA Coding CPT Codes CPT Codes: ANESTH VASCULAR ACCESS - 45849 ([id number]) P2 - PATIENT W/MILD SYST DISEASE, QK - INCINERATOR OPERATOR 2-4 CNCRNT ANES PROC, QX - COLLEGE DIRECTOR SVC W/ MD MED DIRECTION Additional Codes: Summary - Extremes of Age - Over 70 or under 1: CHUCHO ([id number])
--- NOTE | 2024-11-22 09:25 | W.ANESCHARGE ---
Anesthesia Charges Start Date/Time Anesthesia Start Date: 11/22/24 Anesthesia Start Time: 08:24 Stop Date/Time Anesthesia Stop Date: 11/22/24 Anesthesia Stop Time: 09:37 Summary Extremes of Age - Over 70 or under 1: MDA Coding CPT Codes CPT Codes: ANESTH VASCULAR ACCESS - 60362 ([id number]) P2 - PATIENT W/MILD SYST DISEASE, QK - PRINTING MECHANIST 2-4 CNCRNT ANES PROC, QX - SHOULDER PUNCHER SVC W/ MD MED DIRECTION Additional Codes: Summary - Extremes of Age - Over 70 or under 1: CHUCHO ([id number])
[2024-11-22 09:35] VITALS: BP 98/70; PULSE 85; RESP 16; TEMP 36.3; O2SAT 94
--- NOTE | 2024-11-22 09:40 | P.ANES_ITS ---
Anesthesia Charges Start Date/Time Anesthesia Start Date: 11/22/24 Anesthesia Start Time: 08:24 Stop Date/Time Anesthesia Stop Date: 11/22/24 Anesthesia Stop Time: 09:37 Summary Extremes of Age - Over 70 or under 1: STERILE INSTRUMENT TECHNICIAN Coding CPT Codes CPT Codes: ANESTH VASCULAR ACCESS - 08401 ([id number]) P2 - PATIENT W/MILD SYST DISEASE, QK - ENVIRONMENTAL SERVICES ATTENDANT 2-4 CNCRNT ANES PROC, QX - STERILE INSTRUMENT TECHNICIAN SVC W/ MD MED DIRECTION Additional Codes: Summary - Extremes of Age - Over 70 or under 1: STERILE INSTRUMENT TECHNICIAN ([id number])
--- NOTE | 2024-11-22 09:40 | W.ANESCHARGE ---
Anesthesia Charges Start Date/Time Anesthesia Start Date: 11/22/24 Anesthesia Start Time: 08:24 Stop Date/Time Anesthesia Stop Date: 11/22/24 Anesthesia Stop Time: 09:37 Summary Extremes of Age - Over 70 or under 1: CONSUMER SALES REPRESENTATIVE Coding CPT Codes CPT Codes: ANESTH VASCULAR ACCESS - 60114 ([id number]) P2 - PATIENT W/MILD SYST DISEASE, QK - SITE ACQUISITION MANAGER 2-4 CNCRNT ANES PROC, QX - CONSUMER SALES REPRESENTATIVE SVC W/ MD MED DIRECTION Additional Codes: Summary - Extremes of Age - Over 70 or under 1: CONSUMER SALES REPRESENTATIVE ([id number])
[2024-11-22 09:45] VITALS: BP 116/79; PULSE 72; RESP 16; O2SAT 100
[2024-11-22 10:00] VITALS: BP 121/81; PULSE 73; RESP 16; O2SAT 99
== END 2024-11-22 10:17 | disposition home or self-care (01) ==
PROVIDERS: PCP Internal Medicine; Visit Provider Surgery
PROC: (CPT 36561; principal; 2024-11-22 08:30)
DX: Z45.2 Encounter for adjustment and management of vascular access device (principal); C50.812 Malignant neoplasm of overlapping sites of left female breast; Z17.1 Estrogen receptor negative status [ER-]; Z17.32 Human epidermal growth factor receptor 2 negative status; Z17.22 Progesterone receptor negative status
CPT/HCPCS: 36561; 00532; 71045; 76000; 76998; 99100; J2003; C1769; C1788; J0665; J0690; J1642; J2250; J2371; J2405; J2704; J3010; J3490; J7120

== ENCOUNTER 2024-11-26 08:42 | Outpatient (CLI) | payer MEDICARE, BC, SELFPAY ==
--- NOTE | 2024-11-26 10:00 | CRLHL7_ITS ---
For Patients: As a result of the Century Cures Act, medical imaging exams and procedure reports are released immediately into your electronic medical record. You may view this report before your referring provider. If you have questions, please contact your health care provider. INDICATION: Thyroid nodule. Comparison none. TECHNIQUE: CT soft tissue neck with IV contrast. Isovue 370, 70 cc IV. FINDINGS: Normal bilateral parotid and submandibular glands. Enlargement of the right thyroid lobe secondary to a heterogeneous enhancing nodule measuring approximately 3.4 x 5.3 x 4.8 cm extending below thoracic inlet. A associated mass-effect upon the trachea esophagus to the left. Lung apices are clear. Right-sided Port-A-Cath. No enlarged cervical lymph nodes. No supraclavicular superior mediastinal adenopathy. Nasopharynx and oropharynx are clear. No inflammation within the paravertebral fat pads or retropharyngeal space. Normal thickness of the epiglottis. Normal glottis with symmetric vocal cords. Lung apices are clear. Normal alignment of the cervical spine. No prevertebral soft tissue swelling. Visualized paranasal sinuses and mastoid air cells are clear. IMPRESSION: 1. Enlargement of the right thyroid lobe secondary to a heterogeneously enhancing nodule. No surrounding inflammatory change. 2. No adenopathy. 3. Normal deep soft tissues of the neck. Please note that all CT scans at this facility use dose modulation, iterative reconstruction, and/or weight-based dosing when appropriate to reduce radiation dose to as low as reasonably achievable. Dictated by Nehemias Griffiths MD @ 11/29/2024 9:44:01 AM (Electronically Signed)
--- NOTE | 2024-11-26 11:15 | CRLHL7_ITS ---
For Patients: As a result of the Cures Act, medical imaging exams and procedure reports are released immediately into your electronic medical record. You may view this report before your referring provider. If you have questions, please contact your health care provider. CLINICAL HISTORY: Nontoxic single thyroid TECHNIQUE: Cuadra-scale and color Doppler images were acquired of the thyroid gland. FINDINGS: FINDINGS:The right lobe measures 8.1 x 4.6 x 3.5 and the left lobe measures 4.5 x 1.5 x 1.5 in size. 1. Right Mid 5.8 complex solid cystic nodule TR 3. 2. Right superior 1.2 centimeter cystic nodule TR 3. 3. Complex solid cystic left superior nodule measuring 0. 6 centimeters TR 3 4. Left Mid 1.1 centimeter solid cystic nodule TR 3 5. Hypoechoic left isthmic nodule measuring 1.3 centimeters TR 4 IMPRESSION: Multinodular thyroid. ACR TI-RADS [email or web address] TR1: Benign No FNA TR2: Not Suspicious No FNA TR3: Mildly Suspicious FNA if greater than or equal to 2.5 cm Follow if greater than or equal to 1.5 cm TR4: Moderately Suspicious FNA if greater than or equal to 1.5 cm Follow if greater than or equal to 1 cm TR5: Highly Suspicious FNA if greater than or equal to 1 cm Follow if greater than or equal to 0.5 cm nontoxic single thyroid Dictated by Esperanza Escobar MD @ 11/29/2024 7:27:33 AM (Electronically Signed)
== END 2024-11-26 08:43 | disposition home or self-care (01) ==
LOC: RAD 08:42
PROVIDERS: PCP Internal Medicine; Visit Provider Internal Medicine Hematology & Oncology
DX: E04.1 Nontoxic single thyroid nodule (principal); C50.912 Malignant neoplasm of unspecified site of left female breast; Z51.81 Encounter for therapeutic drug level monitoring; Z79.899 Other long term (current) drug therapy
CPT/HCPCS: 70491; 76536; 93306; Q9967

== ENCOUNTER 2024-12-08 08:56 | Outpatient (CLI) | payer MEDICARE, BC, SELFPAY ==
--- NOTE | 2024-12-08 09:15 | CRLHL7_ITS ---
For Patients: As a result of the Century Cures Act, medical imaging exams and procedure reports are released immediately into your electronic medical record. You may view this report before your referring provider. If you have questions, please contact your health care provider. INDICATION : Right thyroid nodule. TECHNIQUE : Ultrasound guided fine needle aspiration of thyroid nodule. COMPARISON : 11/26/2024 FINDINGS : PROCEDURE: After the informed consent and time-out, multiple fine needle aspirations were obtained from the thyroid nodule. Fine needle performed. 25 gauge needles were used. Lidocaine was used for local anesthesia. The preliminary cytology was adequate for interpretation. Real-time imaging was used for guidance and needle placement. Post imaging ultrasound demonstrates no immediate complication. IMPRESSION : Successful fine needle aspiration of right thyroid nodule. Right internal jugular vein thrombus was noted and a subsequent dedicated right upper extremity venous ultrasound was performed. Dictated by Sanjay Barkley MD @ 12/08/2024 11:18:04 AM (Electronically Signed)
--- NOTE | 2024-12-08 10:45 | CRLHL7_ITS ---
For Patients: As a result of the Century Cures Act, medical imaging exams and procedure reports are released immediately into your electronic medical record. You may view this report before your referring provider. If you have questions, please contact your health care provider. Indication: Edema. Pain. Technique: Ultrasound examination of the right upper extremity venous system was performed. Grayscale comment grayscale compression, color Doppler and spectral Doppler was performed. Augmentation technique was utilized Comparison: None Findings: There is occlusive thrombus involving the entirety of the right internal jugular vein The right innominate vein, right subclavian vein, right axillary vein, right brachial vein and right basilic vein appeared normal. The cephalic vein was not visualized presumably congenitally absent or hypoplastic. I discussed the above findings with Dr. Jason at 11 a.m. on December 08, 2024 Impression: 1. Occlusive thrombus identified involving the entirety of the right internal jugular vein. 2. No other venous thrombosis identified in the right upper extremity. 3. The right cephalic vein was not visualized presumably congenitally absent or hypoplastic. Dictated by Lennox Kohler MD @ 12/08/2024 11:02:40 AM (Electronically Signed)
== END 2024-12-08 08:57 | disposition home or self-care (01) ==
LOC: US 08:57
PROVIDERS: PCP Internal Medicine; Visit Provider Internal Medicine Hematology & Oncology
DX: E04.2 Nontoxic multinodular goiter (principal); I82.C11 Acute embolism and thrombosis of right internal jugular vein; R60.9 Edema, unspecified; R93.89 Abnormal findings on diagnostic imaging of other specified body structures; I82.629 Acute embolism and thrombosis of deep veins of unspecified upper extremity
CPT/HCPCS: 10005; 76942; 88173; 93971; 97140

== ENCOUNTER 2024-12-29 07:30 | Outpatient (RCR) | payer MEDICARE, BC, SELFPAY ==
[2024-12-23 09:28] LABS: Hematocrit* 40.5 % (33.0-51.0); Hemoglobin* 13.4 gm/dL (12.0-16.0); Immature Granulocytes Abs Auto 0.04 K/uL (0.00-0.30); Immature Granulocytes Pct Auto 0.7 %; Lymphocytes Absolute Auto 1.50 K/uL (0.90-2.90); Mean Corpuscular HGB Conc 33 gm/dL (32-36); Mean Corpuscular Hemoglobin 31 pg (26-34); Mean Corpuscular Volume 94 fL (80-100); RDW Coefficient of Variation % 13.0 % (11.5-15.5); Red Blood Count* 4.32 m/uL (4.00-5.20); White Blood Count* 5.48 K/uL (4.50-11.00)
[2024-12-23 09:34] LABS: Slide Review Reflex No
[2024-12-23 09:41] LABS: Albumin* 4.4 g/dL (3.3-5.0); Chloride* 98 mmol/L (96-114); Potassium* 4.3 mmol/L (3.6-5.1); Sodium* 133 mmol/L (135-149)
[2024-12-23 09:44] LABS: Alanine Aminotransferase* 35 U/L (4-35); Alkaline Phosphatase* 65 U/L (40-150); Anion Gap 9 mEq/L (7-15); Aspartate Amino Transferase* 35 U/L (12-35); Bilirubin Total* 0.6 mg/dL (0.1-1.5); Blood Urea Nitrogen* 9 mg/dL (7-30); Carbon Dioxide* 26 mmol/L (20-32); Creatinine* 0.6 mg/dL (0.5-1.5); Estimated Glomerular Filt Rate 92 ml/min; Total Protein* 6.9 g/dL (6.0-8.3)
[2024-12-23 09:45] LABS: Calcium* 9.4 mg/dL (8.4-10.6); Glucose* 90 mg/dL (60-115)
== END 2024-12-29 11:57 | disposition home or self-care (01) ==
PROVIDERS: Internal Medicine Hematology & Oncology; PCP Internal Medicine; Visit Provider Orthopaedic Surgery
DX: Z48.89 Encounter for other specified surgical aftercare (principal); Z51.89 Encounter for other specified aftercare; E04.2 Nontoxic multinodular goiter; I82.C11 Acute embolism and thrombosis of right internal jugular vein; R60.9 Edema, unspecified; R93.89 Abnormal findings on diagnostic imaging of other specified body structures; I82.629 Acute embolism and thrombosis of deep veins of unspecified upper extremity
CPT/HCPCS: 36415; 80053; 84443; 85025; 97110; 97140; 97165; L3808; X5282

== ENCOUNTER 2025-02-09 10:48 | Outpatient (CLI) | payer MEDICARE, BC, SELFPAY | END 2025-02-09 10:49 | disposition home or self-care (01) | LOC: RAD 10:49 | PROVIDERS: PCP Internal Medicine; Visit Provider Internal Medicine Hematology & Oncology | DX: Z51.81 Encounter for therapeutic drug level monitoring (principal); I35.1 Nonrheumatic aortic (valve) insufficiency; I34.1 Nonrheumatic mitral (valve) prolapse; I34.0 Nonrheumatic mitral (valve) insufficiency; I07.1 Rheumatic tricuspid insufficiency; Z79.899 Other long term (current) drug therapy | CPT/HCPCS: 93306 ==